=== PATIENT | female | born 1995 | race Caucasian/White ===

== ENCOUNTER 2019-07-21 23:08 | Emergency (ER) | payer SELFPAY ==
--- NOTE | 2019-07-22 00:03 | EDM.PDOC ---
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 LMP 7/12. US x 1 at [facility]. Has not seen OB. . Denies cramping, no fever no chills, no urinary c/o no dizziness. Left Upper Abdomen Pain Score (Numeric/FACES): 4 - Related Data Allergies Allergy/AdvReac Type Severity Reaction Status Date / Time No Known Allergies Allergy Verified 07/21/19 23:27 Past Medical History Psychiatric History: Reports: Anxiety, Depression - Infectious Disease History Infectious Disease History: Reports: Shingles - Past Surgical History HEENT Surgical History: Reports: Tonsillectomy GI Surgical History: Reports: Cholecystectomy Social & Family History - Family History Family Medical History: Noncontributory - Tobacco Use Smoking Status *Q: Former Smoker Used Tobacco, but Quit: No - Caffeine Use Caffeine Use: Reports: Coffee, Soda, Tea - Recreational Drug Use Recreational Drug Use: No ED ROS GENERAL - Review of Systems Review Of Systems: See Below Constitutional: Denies: Fever, Chills, Weakness HEENT: Reports: No Symptoms Respiratory: Reports: No Symptoms Cardiovascular: Reports: No Symptoms GI/Abdominal: Reports: No Symptoms. Denies: Abdominal Pain : Reports: Other (bright red vaginal bleeding) Musculoskeletal: Reports: No Symptoms Skin: Reports: No Symptoms ED EXAM - Physical Exam Exam: See Below Exam Limited By: No Limitations General Appearance: Alert, No Apparent Distress, Anxious Eye Exam: Bilateral Eye: EOMI Ears: Normal External Exam Nose: Normal Inspection Throat/Mouth: Normal Inspection Head: Atraumatic, Normocephalic Neck: Normal Inspection Respiratory/Chest: No Respiratory Distress, Lungs Clear, Normal Breath Sounds Cardiovascular: Regular Rate, Rhythm GI/Abdominal Exam: Normal Bowel Sounds, Soft, Non-Tender (Female) Exam: Enlarged Uterus, Vaginal Bleeding (small amount vaginal vault) . No: Tissue Present in Cervix/Vagina Back Exam: Full Range of Motion Extremities: Normal Inspection Neurological: Alert, Oriented, Normal Cognition Psychiatric: Normal Affect Skin Exam: Warm, Dry, Intact, Normal Color Course - Vital Signs Last Recorded V/S: Last Vital Signs Temp 97.6 F 07/21/19 23:15 Pulse 89 07/21/19 23:15 Resp 17 07/21/19 23:15 BP 122/67 07/21/19 23:15 Pulse Ox 100 07/21/19 23:15 - Orders/Labs/Meds Orders: Active Orders 24 hr Category Date Time Status CULTURE URINE [RM] Stat Lab 07/22/19 02:30 Received RHOGAM, MISCARRIAGE [RHIG WORKUP, MISCARRIAGE] [BBK] Lab 07/21/19 23:35 Ordered Stat TYPE AND SCREEN [BBK] Stat Lab 07/22/19 02:42 Ordered UA W/MICROSCOPIC [URIN] Urgent Lab 07/22/19 02:30 Results Labs: Laboratory Tests 07/21/19 07/21/19 07/21/19 Range/Units 23:43 23:43 23:43 WBC 14.6 H (5.0-10.0) 10^3/uL RBC 4.23 (4.2-5.4) 10^6/uL Hgb 12.9 (12.0-16.0) g/dL Hct 36.5 L (37.0-47.0) % MCV 86.3 (80-100) fL MCH 30.5 (27.0-34.0) pg MCHC 35.3 H (33.0-35.0) g/dL Plt Count 216 (150-450) 10^3/uL Neut % (Auto) 76.2 H (42.2-75.2) % Lymph % (Auto) 17.0 L (20.5-50.1) % [place] % (Auto) 6.0 (2-8) % Eos % (Auto) 0.7 L (1.0-3.0) % Baso % (Auto) 0.1 (0.0-1.0) % Sodium 138 (135-145) mmol/L Potassium 3.5 L (3.6-5.0) mmol/L Chloride 106 (101-111) mmol/L Carbon Dioxide 24.0 (21.0-31.0) mmol/L Anion Gap 11.5 BUN 8 (7-18) mg/dL Creatinine 0.5 L (0.6-1.3) mg/dL Est Cr Clr Drug Dosing 143.52 mL/min Estimated GFR (MDRD) > 60 BUN/Creatinine Ratio 16.00 Glucose 91 (74-105) mg/dL Calcium 8.5 (8.4-10.2) mg/dl Total Bilirubin 0.4 (0.2-1.0) mg/dL AST 19 (10-42) IU/L ALT 13 (10-60) IU/L Alkaline Phosphatase 49 (42-121) IU/L Total Protein 6.7 (6.7-8.2) g/dl Albumin 3.5 (3.2-5.5) g/dl Globulin 3.2 Albumin/Globulin Ratio 1.09 HCG, Quant > 1359 H (0-25) mIU/ml Beta HCG, Quant 08935 mIU/ml Urine Color (YELLOW) Urine Appearance (CLEAR) Urine pH (5.0-9.0) Ur Specific [place] (1.005-1.030) Urine Protein (NEGATIVE) Urine Glucose (UA) (NEGATIVE) Urine Ketones (NEGATIVE) Urine Occult Blood (NEGATIVE) Urine Nitrite (NEGATIVE) Urine Bilirubin (NEGATIVE) Urine Urobilinogen (0.2-1.0) mg/dL Ur Leukocyte Esterase (NEGATIVE) Urine Opiates Screen (NEGATIVE) Ur Oxycodone Screen (NEGATIVE) Urine Methadone Screen (NEGATIVE) Ur Barbiturates Screen (NEGATIVE) U Tricyclic Antidepress (NEGATIVE) Ur Phencyclidine Scrn (NEGATIVE) Ur Amphetamine Screen (NEGATIVE) U Methamphetamines Scrn (NEGATIVE) Urine MDMA Screen (NEGATIVE) U Benzodiazepines Scrn (NEGATIVE) Urine Cocaine Screen (NEGATIVE) U Marijuana (THC) Screen (NEGATIVE) 07/22/19 07/22/19 Range/Units 02:30 02:30 WBC (5.0-10.0) 10^3/uL RBC (4.2-5.4) 10^6/uL Hgb (12.0-16.0) g/dL Hct (37.0-47.0) % MCV (80-100) fL MCH (27.0-34.0) pg MCHC (33.0-35.0) g/dL Plt Count (150-450) 10^3/uL Neut % (Auto) (42.2-75.2) % Lymph % (Auto) (20.5-50.1) % [place] % (Auto) (2-8) % Eos % (Auto) (1.0-3.0) % Baso % (Auto) (0.0-1.0) % Sodium (135-145) mmol/L Potassium (3.6-5.0) mmol/L Chloride (101-111) mmol/L Carbon Dioxide (21.0-31.0) mmol/L Anion Gap BUN (7-18) mg/dL Creatinine (0.6-1.3) mg/dL Est Cr Clr Drug Dosing mL/min Estimated GFR (MDRD) BUN/Creatinine Ratio Glucose (74-105) mg/dL Calcium (8.4-10.2) mg/dl Total Bilirubin (0.2-1.0) mg/dL AST (10-42) IU/L ALT (10-60) IU/L Alkaline Phosphatase (42-121) IU/L Total Protein (6.7-8.2) g/dl Albumin (3.2-5.5) g/dl Globulin Albumin/Globulin Ratio HCG, Quant (0-25) mIU/ml Beta HCG, Quant mIU/ml Urine Color Red (YELLOW) Urine Appearance Cloudy (CLEAR) Urine pH 8.0 (5.0-9.0) Ur Specific [place] 1.020 (1.005-1.030) Urine Protein 100 H (NEGATIVE) Urine Glucose (UA) Negative (NEGATIVE) Urine Ketones Negative (NEGATIVE) Urine Occult Blood Large H (NEGATIVE) Urine Nitrite Negative (NEGATIVE) Urine Bilirubin Negative (NEGATIVE) Urine Urobilinogen 0.2 (0.2-1.0) mg/dL Ur Leukocyte Esterase Trace H (NEGATIVE) Urine Opiates Screen Negative (NEGATIVE) Ur Oxycodone Screen Negative (NEGATIVE) Urine Methadone Screen Negative (NEGATIVE) Ur Barbiturates Screen Negative (NEGATIVE) U Tricyclic Antidepress Negative (NEGATIVE) Ur Phencyclidine Scrn Negative (NEGATIVE) Ur Amphetamine Screen Negative (NEGATIVE) U Methamphetamines Scrn Negative (NEGATIVE) Urine MDMA Screen Negative (NEGATIVE) U Benzodiazepines Scrn Negative (NEGATIVE) Urine Cocaine Screen Negative (NEGATIVE) U Marijuana (THC) Screen Positive H (NEGATIVE) - Radiology Interpretation Free Text/Narrative:: [facility] Final Radiology Report Call: [phone] assistance Online chat: [email or web address] ([email or web address] by [email or web address]).[place]der Name: ASTRID LUCIANO Age: 24Years F Date: 07/22/2019 SSN: -- : [id number] Study: US LTD ONE OR MORE FETUSES Requesting Physician: JUAN CARLOS LOPEZ Images: 30 Addl Studies: Provided Clinical History: Contrast: Without Contrast Medium: Contrast Amount: Contrast Method: Page 1 of 2 PROCEDURE INFORMATION: Exam: US First Trimester, Transabdominal Exam date and time: 07/22/2019 1:10 AM Clinical history: 24 years old, female; first trimester . Vaginal bleeding. Serum beta HC,361 TECHNIQUE: Imaging protocol: Real-time transabdominal obstetrical ultrasound of the maternal pelvis and a first trimester , less than 14 weeks 0 days, with image documentation. COMPARISON: No relevant prior studies available. FINDINGS: GESTATION: Gestation: Single live intrauterine embryo. Heart rate: 197 beats per minute. Placenta: Subchorionic hematoma. Amniotic fluid: Amniotic and chorionic fluid are normal for gestational age. BIOMETRY: Estimated gestational age: 13 weeks 0 days. [place] length: 6.6 cm. MATERNAL: Uterus: Unremarkable. Cervix: Unremarkable. Right adnexa: Unremarkable. Left adnexa: Unremarkable. Intraperitoneal: No intraperitoneal free fluid. ASTRID LUCIANO | Final Radiology Report CONFIDENTIALITY STATEMENT This report is intended only for use by the referring physician, and only in accordance with law. If you received this in error, call [phone]. Page 2 of 2 IMPRESSION: 1. Single live intrauterine embryo with a sonographic gestational age of 13 weeks 0 days. ARLETTE is 01/27/2020. 2. Subchorionic hematoma. Thank you for allowing us to participate in the care of your patient. Dictated and Authenticated by: Champ Wadsworth MD 07/22/2019 2:08 AM Central Time ([place] & [place]) Departure - Departure Time of Disposition: 02:51 Disposition: Home, Self-Care 01 Condition: Good Clinical Impression: Vaginal bleeding before 22 weeks gestation Subchorionic hematoma in first trimester Qualifiers: Fetus number: single or unspecified fetus Qualified Code(s): O41.8X10 - Other specified disorders of amniotic fluid and membranes, first trimester, not applicable or unspecified - Discharge Information *PRESCRIPTION DRUG MONITORING PROGRAM REVIEWED*: No *COPY OF PRESCRIPTION DRUG MONITORING REPORT IN PATIENT RADAMES: No Instructions: Vaginal Bleeding During , First Trimester, [id number] , Subchorionic Hematoma Forms: ED Department Discharge Additional Instructions: increase fluids light activity no intercourse 48 hours clinic follow up early next week, call in am to schedule No heavy lifting urgent follow up if heavy bleeding, dizziness fever - My Orders Last 24 Hours: My Active Orders 07/21/19 23:35 RHOGAM, MISCARRIAGE [RHIG WORKUP, MISCARRIAGE] [BBK] Stat 07/22/19 02:30 CULTURE URINE [RM] Stat UA W/MICROSCOPIC [URIN] Urgent 07/22/19 02:42 TYPE AND SCREEN [BBK] Stat - Assessment/Plan Last 24 Hours: My Active Orders 07/21/19 23:35 RHOGAM, MISCARRIAGE [RHIG WORKUP, MISCARRIAGE] [BBK] Stat 07/22/19 02:30 CULTURE URINE [RM] Stat UA W/MICROSCOPIC [URIN] Urgent 07/22/19 02:42 TYPE AND SCREEN [BBK] Stat"
[2019-07-22 00:12] LABS: ANION GAP 11.5; CHLORIDE,CL 106 mmol/L (101-111); SODIUM,NA 138 mmol/L (135-145)
== END 2019-07-22 03:08 | disposition home or self-care (01) ==
LOC: DL.ED 23:08
DX: O20.8 Other hemorrhage in early pregnancy (principal); O99.331 Smoking (tobacco) complicating pregnancy, first trimester; Z87.891 Personal history of nicotine dependence; Z3A.13 13 weeks gestation of pregnancy
CPT/HCPCS: 36415; 76815; 80053; 80305-QW; 81001; 84702; 85025; 86850; 86900; 86901; 87086; 99284-25

== ENCOUNTER 2019-07-24 01:22 | Emergency (ER) | payer SELFPAY ==
[2019-07-24] MEDS ORDERED: Sodium Chloride 0.9% 1,000 ML IV ONE (01:29)
--- NOTE | 2019-07-24 01:32 | EDM.PDOC ---
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 [id number]. thinks about 13 weeks not seen OB, only clinic. Lower Abdominal Pain Score (Numeric/FACES): 5 Lower Abdomen Pain Score (Numeric/FACES): 6 - Related Data Allergies Allergy/AdvReac Type Severity Reaction Status Date / Time No Known Allergies Allergy Verified 07/24/19 01:31 Past Medical History Psychiatric History: Reports: Anxiety, Depression - Infectious Disease History Infectious Disease History: Reports: Shingles - Past Surgical History HEENT Surgical History: Reports: Tonsillectomy GI Surgical History: Reports: Cholecystectomy Social & Family History - Family History Family Medical History: Noncontributory - Caffeine Use Caffeine Use: Reports: Coffee, Soda, Tea ED ROS GENERAL - Review of Systems Review Of Systems: ROS reveals no pertinent complaints other than HPI. ED EXAM - Physical Exam Exam: See Below Exam Limited By: No Limitations General Appearance: Alert, WD/WN, Mild Distress, Other (upset). No: Active Emesis Ears: Hearing Grossly Normal Throat/Mouth: No Airway Compromise Head: Atraumatic Neck: Non-Tender, Full Range of Motion Respiratory/Chest: No Respiratory Distress Cardiovascular: Regular Rate, Rhythm GI/Abdominal Exam: Tender, Other (suprapubic). No: Distended, Guarding, Rigid, Rebound (Female) Exam: Products of Conception, Tissue Present in Cervix/Vagina, Uterine Tenderness, Vaginal Bleeding Psychiatric: Flat Affect Skin Exam: Warm, Dry, Normal Color Lymphatic: No Adenopathy Course - Vital Signs Last Recorded V/S: Last Vital Signs Temp 36.3 C 07/24/19 01:30 Pulse 95 07/24/19 01:30 Resp 16 07/24/19 01:30 BP 131/75 07/24/19 01:30 Pulse Ox 98 07/24/19 01:30 - Orders/Labs/Meds Labs: Laboratory Tests 07/24/19 07/24/19 07/24/19 Range/Units 01:34 01:34 01:34 WBC 16.5 H (5.0-10.0) 10^3/uL RBC 4.46 (4.2-5.4) 10^6/uL Hgb 13.4 (12.0-16.0) g/dL Hct 38.1 (37.0-47.0) % MCV 85.4 (80-100) fL MCH 30.0 (27.0-34.0) pg MCHC 35.2 H (33.0-35.0) g/dL Plt Count 258 (150-450) 10^3/uL Neut % (Auto) 76.1 H (42.2-75.2) % Lymph % (Auto) 17.3 L (20.5-50.1) % [place] % (Auto) 5.6 (2-8) % Eos % (Auto) 0.7 L (1.0-3.0) % Baso % (Auto) 0.3 (0.0-1.0) % Sodium 135 (135-145) mmol/L Potassium 4.2 (3.6-5.0) mmol/L Chloride 105 (101-111) mmol/L Carbon Dioxide 22.0 (21.0-31.0) mmol/L Anion Gap 12.2 BUN 6 L (7-18) mg/dL Creatinine 0.6 (0.6-1.3) mg/dL Est Cr Clr Drug Dosing 119.60 mL/min Estimated GFR (MDRD) > 60 BUN/Creatinine Ratio 10.00 Glucose 107 H (74-105) mg/dL Calcium 8.7 (8.4-10.2) mg/dl Total Bilirubin 0.9 (0.2-1.0) mg/dL AST 28 (10-42) IU/L ALT 8 L (10-60) IU/L Alkaline Phosphatase 51 (42-121) IU/L Total Protein 6.4 L (6.7-8.2) g/dl Albumin 3.2 (3.2-5.5) g/dl Globulin 3.2 Albumin/Globulin Ratio 1.00 HCG, Quant > 1359 H (0-25) mIU/ml Beta HCG, Quant 77715 mIU/ml Meds: Medications Discontinued Medications Generic Name Dose Route Start Last Admin Trade Name Freq PRN Reason Stop Dose Admin Sodium Chloride 1,000 mls @ 500 mls/hr 07/24/19 01:29 07/24/19 01:47 Normal Saline IV 07/24/19 03:28 500 mls/hr .BOLUS ONE Administration Ketorolac Tromethamine 30 mg 07/24/19 03:22 07/24/19 03:34 Toradol IVPUSH 07/24/19 03:23 30 mg ONETIME ONE Administration - Re-Assessments/Exams Free Text/Narrative Re-Assessment/Exam: 07/24/19 02:[address] Huynh who states will come to eval' 07/24/19 03:39 Dr Huynh arrived, eval' and Tx pt. Departure - Departure Time of Disposition: 03:39 Disposition: Home, Self-Care 01 Condition: Good Clinical Impression: Complete - Discharge Information Instructions: Miscarriage, [id number] Forms: ED Department Discharge Additional Instructions: 1) follow up with Dr huynh in 2 weeks 2) recheck as needed 3) avoid vigorous activities next 7 days 4) take tylenol or motrin as needed
[2019-07-24 02:06] LABS: ANION GAP 12.2; CHLORIDE,CL 105 mmol/L (101-111); SODIUM,NA 135 mmol/L (135-145)
[2019-07-24] MEDS ORDERED: Ketorolac 30 MG/ML SDV IVPUSH ONE (03:22)
--- NOTE | 2019-07-24 05:38 | CONS ---
SERVICE DATE: 07/24/2019 INDICATION FOR CONSULTATION: Bleeding from incomplete miscarriage. HISTORY OF PRESENT ILLNESS: The patient is a 24-year-old, 2, para 0-0-2- 0, estimated to be about 13 weeks' gestation, who had been seen in the emergency department just a few days ago for vaginal bleeding and cramping. Ultrasound report said less than 14 weeks' estimated gestational age, single living intrauterine embryo at estimated 13 weeks 0 days and a subchorionic bleed present. The patient was discharged home and reports this morning started having increased cramping and she was able to take it easy and the pains got better. She had some light bleeding that stopped and then it returned. When the bleeding came back tonight, it was quite a bit heavier and the cramping more intense, so she came to the emergency room for evaluation. She denies any chest pain or shortness of breath. She was able to keep all of the tissue and the baby that she passed and brought it with her and is uncertain about what she would want to do disposition engle with the fetus and we will work with that on her. OBSTETRICAL HISTORY: This is as listed above. It does not sound like she has had any formal care yet and does not have a regular doctor. PAST MEDICAL HISTORY: Prior miscarriage x1. Otherwise, typically healthy. SURGICAL HISTORY: Tonsillectomy and cholecystectomy. FAMILY HISTORY: Overall unremarkable and noncontributory. MEDICATIONS: None. ALLERGIES: None. REVIEW OF SYSTEMS: Pertinent positives and negatives as listed above. OBJECTIVE: Vital Signs: Temperature 97.4, pulse 95, blood pressure 131/75, respiratory rate of 16, O2 saturations 98% on room air. Genitourinary: Focused genitourinary exam, there was blood at the perineum, and speculum was placed and there was tissue present in the vaginal vault consisting of small fragments of placenta-like tissue as well as some membranes. Once this was removed and a small amount of blood cleared from the vagina, there was no further bleeding seen coming from the cervical os. The cervix was prepped with Betadine and then a blunt curette used to feel inside the uterus and I did not detect any persistent tissue present, and there was no active bleeding coming from the cervix. Skin: Warm, dry, appropriate. No pallor. Neurological: No obvious focal deficits. Psychiatric: The patient is handling things quite well. Some tearfulness as would be expected, but no obvious signs of severe depression, anxiety, or psychiatric disorders. FINDINGS: The patient did bring with her the baby, which is intact and grossly appears normal for gestational age. Baby was still attached to the placenta, which looked mostly intact, and in the garbage, she passed some additional placental tissue which would look approximate size for passing the entire placenta, especially when combined with the additional membranes that I was able to remove. DIAGNOSIS: Complete miscarriage at 13 weeks' gestation. PLAN: The patient is being monitored for any persistent bleeding, and after we verified that things have slowed down, we will let her go home, avoiding a D and C at this time. I have recommended that she be seen in the office next week for a followup visit and to make sure that things are going well. She will be given education as what to watch for. If she has any persistent heavy bleeding or develops any signs of infection, she needs to be seen again. Discussed with her that we can keep the baby for now while she decides on disposition. If they would like to do a burial at home, take the baby to a home, or they would prefer that the hospital takes care of disposal, that will be up to them. Also, discussed with her that she is only 24 years old and typically a workup for recurrent miscarriage does not happen until after a total of 3 losses. She certainly may want to contact her insurance company and if they would be approving of sending the baby and the placenta for chromosomal analysis or other evaluation to explain recurrent loss, we can offer that to her since she was able to bring in everything necessary, but I did let her know that I have doubts that the insurance company would pay for this analysis at this time and likely they will anticipate that she needs the 3rd loss in order for this to be performed. The patient's database sheet says that she is self- pay to verify with her as well as that certainly would make an impact on her decision. [facility] /[id number]
== END 2019-07-24 04:15 | disposition home or self-care (01) ==
LOC: DL.ED 01:22
DX: O03.9 Complete or unspecified spontaneous abortion without complication (principal)
CPT/HCPCS: 36415; 80053; 84702; 85025; 96361; 96374; 99284-25; J1885; J7030

== ENCOUNTER 2020-02-04 04:02 | Emergency (ER) | payer BC, OTHER ==
[2020-02-04] MEDS ORDERED: Propofol 1,000 MG/100 ML SDV IV ONE (04:03)
[2020-02-04] MEDS ORDERED: LORazepam 2 MG/ML SDV ONE (04:10)
[2020-02-04] MEDS ORDERED: LORazepam 2 MG/ML SDV IVPUSH ONE (04:11)
[2020-02-04] MEDS ORDERED: Sodium Chloride 0.9% 1,000 ML IV ONE (04:18)
[2020-02-04] MEDS ORDERED: Propofol 200 MG/20 ML SDV ONE (04:27)
[2020-02-04] MEDS ORDERED: propofoL 100 ML ONE ×2 (04:27→04:47)
[2020-02-04] MEDS ORDERED: Lidocaine 1% 50 MG/5 ML Syringe IVPUSH ONE (04:28)
[2020-02-04] MEDS ORDERED: Rocuronium 100 MG/10 ML MDV IV ONE (04:28)
[2020-02-04] MEDS ORDERED: Lidocaine 1% 50 MG/5 ML Syringe ONE (04:28)
[2020-02-04] MEDS ORDERED: Succinylcholine 200 MG/10 ML MDV IV ONE (04:28)
--- NOTE | 2020-02-04 04:33 | EDM.PDOC ---
ED HPI GENERAL MEDICAL PROBLEM - General Chief Complaint: Head Injury Stated Complaint: UNKNOWN,AMBULANCE Time Seen by Provider: 02/04/20 04:02 Source of Information: Reports: EMS History Limitations: Reports: Other (unresponsive) - History of Present Illness INITIAL COMMENTS - FREE TEXT/NARRATIVE: EMS called to scene with pt lying on couch unresponsive, unable to initially get BP pt was alternating flexing and extending both her arms. en route pt started extending her legs. did notice some bruising over both breast and left thigh region. pt given narcan with '0' Residents at scene gave poor history, alleging pt was found on bathroom floor and they moved her to the couch but unable to wake her. denies drugs usage. Boy friend states he went to bed about 11pm and doesn't know what happened. Pt arrived grunting respiration with head twitching to right and decerebrating activity with both arms and legs in extension, and bilateral Babinski sign with upward extension of both big toes. all this without any form of stimulation. Treatments STAFF ANALYST: Reports: Oxygen - Related Data Allergies Allergy/AdvReac Type Severity Reaction Status Date / Time No Known Allergies Allergy Verified 02/04/20 04:17 Home Meds: Home Meds . [Unable to Verify Home Med List] 02/04/20 [History] Past Medical History Psychiatric History: Reports: Anxiety, Depression - Infectious Disease History Infectious Disease History: Reports: Shingles - Past Surgical History HEENT Surgical History: Reports: Tonsillectomy GI Surgical History: Reports: Cholecystectomy Social & Family History - Family History Family Medical History: Noncontributory - Tobacco Use Smoking Status *Q: Unknown Ever Smoked - Caffeine Use Caffeine Use: Reports: Coffee, Soda, Tea ED ROS GENERAL - Review of Systems Review Of Systems: Comprehensive ROS is negative, except as noted in HPI. ED EXAM, HEAD INJURY - Physical Exam Exam: See Below Exam Limited By: No Limitations General Appearance: Other (unresponsive) Head: Atraumatic. No: Yoder's Sign, Raccoon Eyes Nexus Criteria: Altered Level of Consciousness. No: Evidence of Intoxication Eyes: Bilateral Eye: Abnormal EOM (external strabismus), PERRL (pupils ER @ 5mm , ) Throat/Mouth: Other (dried blood in mouth, ) Neck: Normal Alignment, Normal Inspection Respiratory: Other (loud grunting respirartion, tachypnoeic) Cardiovascular: Tachycardia Extremities: Other (left thigh bruising) Neurologic: Other (unresponsive) Skin: Ecchymosis, Other (both breast, left thigh) - Sunshine Coma Score Best Eye Response (Sunshine): (1) No Response Best Verbal Response (Sunshine): (1) No Verbal Response Best Motor Response (Sunshine): (2) Extension to Pain Sunshine Total: 4 Course - Vital Signs Last Recorded V/S: Last Vital Signs Temp 36.9 C 02/04/20 04:04 Pulse 169 H 02/04/20 04:04 Resp 42 H 02/04/20 04:04 BP 120/66 02/04/20 04:04 Pulse Ox 100 02/04/20 04:04 - Orders/Labs/Meds Orders: Active Orders 24 hr Category Date Time Status EKG 12 Lead [EKG Documentation Completion] [RC] STAT Care 02/04/20 05:34 Ordered Labs: Laboratory Tests 02/04/20 02/04/20 02/04/20 Range/Units 04:08 04:08 04:08 WBC (5.0-10.0) 10^3/uL RBC (4.2-5.4) 10^6/uL Hgb (12.0-16.0) g/dL Hct (37.0-47.0) % MCV (80-100) fL MCH (27.0-34.0) pg MCHC (33.0-35.0) g/dL Plt Count (150-450) 10^3/uL Neut % (Auto) (42.2-75.2) % Lymph % (Auto) (20.5-50.1) % [place] % (Auto) (2-8) % Eos % (Auto) (1.0-3.0) % Baso % (Auto) (0.0-1.0) % Add Manual Diff Neutrophils % (Manual) (42-75) % Band Neutrophils % % Lymphocytes % (Manual) (20-50) % Monocytes % (Manual) (2-8) % Sodium (136-145) mmol/L Potassium (3.5-5.1) mmol/L Chloride (98-107) mmol/L Carbon Dioxide (21-32) mmol/L Anion Gap (7-13) mEq/L BUN (7-18) mg/dL Creatinine (0.55-1.02) mg/dL Est Cr Clr Drug Dosing mL/min Estimated GFR (MDRD) BUN/Creatinine Ratio (No establ ref range) Glucose (74-99) mg/dL Calcium (8.5-10.1) mg/dL Total Bilirubin (0.2-1.0) mg/dL AST (15-37) U/L ALT (14-59) U/L Alkaline Phosphatase (46-116) U/L Troponin I (0.000-0.056) ng/mL Total Protein (6.4-8.2) g/dL Albumin (3.4-5.0) g/dL Globulin Albumin/Globulin Ratio Urine Color Yellow (YELLOW) Urine Appearance Cloudy (CLEAR) Urine pH 5.5 (5.0-9.0) Ur Specific [place] >= 1.030 (1.005-1.030) Urine Protein 30 H (NEGATIVE) Urine Glucose (UA) Negative (NEGATIVE) Urine Ketones 15 H (NEGATIVE) Urine Occult Blood Moderate H (NEGATIVE) Urine Nitrite Negative (NEGATIVE) Urine Bilirubin Negative (NEGATIVE) Urine Urobilinogen 0.2 (0.2-1.0) mg/dL Ur Leukocyte Esterase Negative (NEGATIVE) Urine RBC 10-20 H /HPF Urine WBC 0-5 (0-5/HPF) /HPF Ur Epithelial Cells Few (NOT SEEN) /HPF Amorphous Sediment Few (NOT SEEN) /HPF Urine Bacteria Rare (0-FEW/HPF) /HPF Urine Mucus Moderate H (NOT SEEN) /LPF Urine HCG, Qual Negative Urine Opiates Screen Negative (NEGATIVE) Ur Oxycodone Screen Negative (NEGATIVE) Urine Methadone Screen Negative (NEGATIVE) Ur Barbiturates Screen Negative (NEGATIVE) U Tricyclic Antidepress Negative (NEGATIVE) Ur Phencyclidine Scrn Negative (NEGATIVE) Ur Amphetamine Screen Positive H (NEGATIVE) U Methamphetamines Scrn Positive H (NEGATIVE) Urine MDMA Screen Positive H (NEGATIVE) U Benzodiazepines Scrn Negative (NEGATIVE) Urine Cocaine Screen Positive H (NEGATIVE) U Marijuana (THC) Screen Positive H (NEGATIVE) Ethyl Alcohol (0) mg/dL 02/04/20 02/04/20 Range/Units 04:22 04:22 WBC 41.0 H* (5.0-10.0) 10^3/uL RBC 4.98 (4.2-5.4) 10^6/uL Hgb 14.9 D (12.0-16.0) g/dL Hct 42.5 (37.0-47.0) % MCV 85.3 (80-100) fL MCH 29.9 (27.0-34.0) pg MCHC 35.1 H (33.0-35.0) g/dL Plt Count 514 H D (150-450) 10^3/uL Neut % (Auto) 86.7 H (42.2-75.2) % Lymph % (Auto) 6.6 L (20.5-50.1) % [place] % (Auto) 6.5 (2-8) % Eos % (Auto) 0.0 L (1.0-3.0) % Baso % (Auto) 0.2 (0.0-1.0) % Add Manual Diff Yes Neutrophils % (Manual) 85 H (42-75) % Band Neutrophils % 6 % Lymphocytes % (Manual) 6 L (20-50) % Monocytes % (Manual) 3 (2-8) % Sodium 141 (136-145) mmol/L Potassium 4.7 (3.5-5.1) mmol/L Chloride 103 (98-107) mmol/L Carbon Dioxide 22 (21-32) mmol/L Anion Gap 20.7 H (7-13) mEq/L BUN 10 (7-18) mg/dL Creatinine 0.99 (0.55-1.02) mg/dL Est Cr Clr Drug Dosing 72.48 mL/min Estimated GFR (MDRD) > 60 BUN/Creatinine Ratio 10.1 (No establ ref range) Glucose 125 H (74-99) mg/dL Calcium 9.2 (8.5-10.1) mg/dL Total Bilirubin 0.5 (0.2-1.0) mg/dL AST 49 H (15-37) U/L ALT 42 (14-59) U/L Alkaline Phosphatase 97 (46-116) U/L Troponin I 1.164 H* (0.000-0.056) ng/mL Total Protein 7.5 (6.4-8.2) g/dL Albumin 4.2 (3.4-5.0) g/dL Globulin 3.3 Albumin/Globulin Ratio 1.3 Urine Color (YELLOW) Urine Appearance (CLEAR) Urine pH (5.0-9.0) Ur Specific [place] (1.005-1.030) Urine Protein (NEGATIVE) Urine Glucose (UA) (NEGATIVE) Urine Ketones (NEGATIVE) Urine Occult Blood (NEGATIVE) Urine Nitrite (NEGATIVE) Urine Bilirubin (NEGATIVE) Urine Urobilinogen (0.2-1.0) mg/dL Ur Leukocyte Esterase (NEGATIVE) Urine RBC /HPF Urine WBC (0-5/HPF) /HPF Ur Epithelial Cells (NOT SEEN) /HPF Amorphous Sediment (NOT SEEN) /HPF Urine Bacteria (0-FEW/HPF) /HPF Urine Mucus (NOT SEEN) /LPF Urine HCG, Qual Urine Opiates Screen (NEGATIVE) Ur Oxycodone Screen (NEGATIVE) Urine Methadone Screen (NEGATIVE) Ur Barbiturates Screen (NEGATIVE) U Tricyclic Antidepress (NEGATIVE) Ur Phencyclidine Scrn (NEGATIVE) Ur Amphetamine Screen (NEGATIVE) U Methamphetamines Scrn (NEGATIVE) Urine MDMA Screen (NEGATIVE) U Benzodiazepines Scrn (NEGATIVE) Urine Cocaine Screen (NEGATIVE) U Marijuana (THC) Screen (NEGATIVE) Ethyl Alcohol < 3 (0) mg/dL Meds: Medications Discontinued Medications Generic Name Dose Route Start Last Admin Trade Name Freq PRN Reason Stop Dose Admin Sodium Chloride 1,000 mls @ 999 mls/hr 02/04/20 04:18 02/04/20 04:25 Normal Saline IV 02/04/20 05:18 999 mls/hr .BOLUS ONE Administration Propofol Confirm 02/04/20 04:27 Diprivan 100 Ml Administered 02/04/20 04:28 Dose 100 mls @ as directed .ROUTE .STK-MED ONE Propofol Confirm 02/04/20 04:47 Diprivan 100 Ml Administered 02/04/20 04:48 Dose 100 mls @ as directed .ROUTE .STK-MED ONE Lidocaine HCl Confirm 02/04/20 04:28 Xylocaine 1% Administered 02/04/20 04:29 Dose 50 mg .ROUTE .STK-MED ONE Lorazepam 2 mg 02/04/20 04:11 02/04/20 04:11 Ativan IVPUSH 02/04/20 04:12 2 mg ONETIME ONE Administration Lorazepam Confirm 02/04/20 04:10 02/04/20 04:13 Ativan Administered 02/04/20 04:11 Not Given Dose 2 mg .ROUTE .STK-MED ONE Propofol Confirm 02/04/20 04:27 Diprivan 20 Ml Administered 02/04/20 04:28 Dose 200 mg .ROUTE .STK-MED ONE - Re-Assessments/Exams Free Text/Narrative Re-Assessment/Exam: 02/04/20 04:40 s/p ativan 2mg IVP VS, 112/60, 87, RR 30. 02/04/20 05:37 casr discussed with GF [facility] Dr Case Neuro-vasc @ [facility] kindly accepted pt. Departure - Departure Time of Disposition: 05:38 Disposition: DC/Tfer to [facility] 02 Condition: Poor Clinical Impression: Cerebral hemorrhage, Poly-drug misuser, Unresponsive, Endotracheally intubated - Discharge Information Forms: Interfacility Transfer GALE Sepsis Event Note - Evaluation Sepsis Screening Result: No Definite Risk - Focused Exam Vital Signs: Vital Signs Temp Pulse Resp BP Pulse Ox 02/04/20 04:04 36.9 C 169 H 42 H 120/66 100 Date Exam was Performed: 02/04/20 Time Exam was Performed: 05:37 - My Orders Last 24 Hours: My Active Orders 02/04/20 05:34 EKG 12 Lead [EKG Documentation Completion] [RC] STAT - Assessment/Plan Last 24 Hours: My Active Orders 02/04/20 05:34 EKG 12 Lead [EKG Documentation Completion] [RC] STAT
[2020-02-04 04:56] LABS: ANION GAP 20.7 mEq/L (7-13); CHLORIDE,CL 103 mmol/L (98-107); SODIUM,NA 141 mmol/L (136-145)
--- NOTE | 2020-02-04 05:05 | PCM.PRNOTE ---
- Free Text/Narrative Note: Called to evaluate and intubate 24 year old female patient brought in by EMS with GCS 7. VS: 97/53, HR 171 RR 42 Initial RA sat in the 80s. Blood noted in oropharynx (teeth and tongue) DLV times 1 with glidescope #3. Cords clear of any blood or vomitus. #7.5OETT passed through cords atraumatically. Bilateral BS post intubation. Positive end tidal carbon dioxide noted ETT secured at 21cm at teeth. Ventilated with BVM and 100% oxygen in ER bay. 16 F OGT placed and position confirmed by auscultation. Prior to intubation meds administered: 50mg Lidocaine IVP 100 mg propofol IVP 100 mg succinylcholine IVP. Post-intubation: 60 mg rocuronium IVP after return of lash reflex. Propofol gtt initiated at 40mcg/kg/min for sedation while intubated. Patient tolerated well.
== END 2020-02-04 05:52 ==
LOC: DL.ED 04:02
DX: S06.309A Unspecified focal traumatic brain injury with loss of consciousness of unspecified duration, initial encounter (principal); R40.1 Stupor; S70.12XA Contusion of left thigh, initial encounter; S20.02XA Contusion of left breast, initial encounter; S20.01XA Contusion of right breast, initial encounter; F19.10 Other psychoactive substance abuse, uncomplicated; R00.0 Tachycardia, unspecified; X58.XXXA Exposure to other specified factors, initial encounter
CPT/HCPCS: 31500; 36415; 43752; 51702; 70450; 71045; 72125; 80053; 80305; 80307; 81001; 81025; 84484; 85025; 93005; 96360; 99285; J0330; J2001; J2060; J2704; J7030